=== PATIENT | female | born 1965 | race Caucasian/White ===

== ENCOUNTER 2017-10-29 08:08 | Emergency (ER) | payer OTHER ==
[2017-10-29 08:11] VITALS: BMI 29.2
[2017-10-29 08:12] VITALS: O2SAT 100
[2017-10-29] MEDS ORDERED: Sodium Chloride 0.9% 1,000 ML IV STA (08:32)
--- NOTE | 2017-10-29 09:52 | RAD ---
Date of service: 10/29/2017 PROCEDURE: Left Knee Radiographs. HISTORY: Pain. COMPARISON: None. FINDINGS: BONES: No acute fracture or destructive bony lesion identified. JOINTS: Medial femorotibial joint space narrowing is appreciated as well as of the patellofemoral compartment with limited cortical sclerosis compatible with degenerative joint disease. Small osteophytes seen the lateral pharyngeal femorotibial and patellofemoral compartments compatible with the same. No subluxation or dislocation identified. JOINT EFFUSION: None. OTHER FINDINGS: None. IMPRESSION: Mild degenerative joint disease, tricompartmental. No acute fracture, subluxation or dislocation.
--- NOTE | 2017-10-29 09:57 | ED PDOC ---
Lower Extremity Pain/Injury Time Seen by Provider: 10/29/17 08:27 Chief Complaint (Nursing): Lower Extremity Problem/Injury Chief Complaint (Provider): left knee pain History Per: Patient History/Exam Limitations: no limitations Onset/Duration Of Symptoms: Hrs (today) Current Symptoms Are (Timing): Still Present Additional Complaint(s): Maria Elena Drummond is a 51 year old female, with a past medical history of arthritis to left knee for which she takes daily medications, who was brought to the emergency department via EMS stating today she was walking to work and felt a sudden pain and popping sensation to left knee. Patient states it limited her ability to ambulate afterwards. She denies any falls or trauma. Patient has not seen orthopedics for her issue yet. PMD: Dr. Thompson, who has been working with her. Past Medical History Reviewed: Historical Data, Nursing Documentation, Vital Signs Vital Signs: Last Vital Signs Temp 98.3 F 10/29/17 08:11 Pulse 66 10/29/17 08:11 Resp 20 10/29/17 08:11 BP 154/79 H 10/29/17 08:11 Pulse Ox 100 10/29/17 08:11 - Medical History PMH: Arthritis (left knee) - Surgical History Surgical History: No Surg Hx - Family History Family History: States: Unknown Family Hx - Social History Current smoker - smoking cessation education provided: No Alcohol: None Drugs: Denies - Home Medications Home Medications: Ambulatory Orders Medication Instructions Recorded Cyclobenzaprine HCl [Flexeril] 10 mg PO TID PRN #15 tab 02/18/14 Ibuprofen 600 mg PO TID PRN #15 tab 02/18/14 traMADol [Ultram] 50 mg PO TID PRN #12 tab 10/29/17 - Allergies Allergies/Adverse Reactions: Allergies Allergy/AdvReac Type Severity Reaction Status Date / Time No Known Allergies Allergy Unverified 02/18/14 11:16 Review of Systems ROS Statement: Except As Marked, All Systems Reviewed And Found Negative Musculoskeletal: Positive for: Leg Pain (left knee) Physical Exam - Reviewed Nursing Documentation Reviewed: Yes Vital Signs Reviewed: Yes - Physical Exam Appears: Positive for: No Acute Distress Head Exam: Positive for: ATRAUMATIC, NORMAL INSPECTION, NORMOCEPHALIC Skin: Positive for: Normal Color, Warm, Dry Eye Exam: Positive for: Normal appearance, EOMI, PERRL Neck: Positive for: Painless ROM Extremity: Positive for: Normal ROM (Hip and ankle full ROM), Swelling (minimal edema to left knee. No erythema), Other (pain with ROM of left knee. Full passive ROM, patella is in normal position). Negative for: Deformity (left knee , no crepitus) Neurologic/Psych: Positive for: Alert, Oriented - ECG O2 Sat by Pulse Oximetry: 100 (RA) Pulse Ox Interpretation: Normal Medical Decision Making Medical Decision Making: Time: 08:29 Initial Impression: internal derangement of knee Initial Plan: --Knee 3 views LT [RAD] --Tylenol 325 mg tab 650 mg PO --Reevaluation Accession No. : [id number] Patient Name / ID : ELEAZAR MOSELEY / [id number] Exam Date : 10/29/2017 09:17:16 ( Approved ) Study Comment : Sex / Age : F / 51Y Creator : jennifer padron Dictator : Taran Little MD Business Development Intern : Extractive Metallurgist : Taran Little MD Approver2 : Report Date : 10/29/2017 09:36:39 My Comment : Date of service: 10/29/2017 PROCEDURE: Left Knee Radiographs. HISTORY: Pain. COMPARISON: None. FINDINGS: BONES: No acute fracture or destructive bony lesion identified. JOINTS: Medial femorotibial joint space narrowing is appreciated as well as of the patellofemoral compartment with limited cortical sclerosis compatible with degenerative joint disease. Small osteophytes seen the lateral pharyngeal femorotibial and patellofemoral compartments compatible with the same. No subluxation or dislocation identified. JOINT EFFUSION: None. OTHER FINDINGS: None. IMPRESSION: Mild degenerative joint disease, tricompartmental. No acute fracture, subluxation or dislocation. 10:00 -Patient placed on knee immobilizer and advised to follow up with PMD and orthopedist for MRI. Patient is severely claustrophobic and requires open MRI as an outpatient. Discussed w Dr Lopez covering Dr Thompson, requests vocational placement specialist ortho referral and will see in office next weelk crutch training provided, toe touching. 11:00 -Patient ambulating. Provided Keflex for UTI pending culture and discharge caution with flight and alcohol intake. ----- Scribe Attestation: Documented by Elijah Valentin, acting as a scribe for Conrado Rosario MD. Provider Scribe Attestation: All medical record entries made by the Scribe were at my direction and personally dictated by me. I have reviewed the chart and agree that the record accurately reflects my personal performance of the history, physical exam, medical decision making, and the department course for this patient. I have also personally directed, reviewed, and agree with the discharge instructions and disposition. Disposition - Clinical Impression Clinical Impression: Internal derangement of knee - Disposition Referrals: Estuardo Enriquez MD [Medical Doctor] - Disposition: Routine/Home Disposition Time: 11:00 Condition: STABLE Additional Instructions: Wear immobilizer, use crutches, see orthopedics or your PMD for further testing and possible open MRI. Prescriptions: traMADol [Ultram] 50 mg PO TID PRN #12 tab PRN Reason: Pain, Moderate (4-7) Instructions: Internal Derangement of the Knee Forms: [employer] (Montenegrin)
[2017-10-29 11:37] VITALS: PULSE 78; RESP 19; TEMP 97
[2017-10-29 11:39] VITALS: BP 136/75
== END 2017-10-29 11:39 | disposition home or self-care (01) ==
LOC: H.ER 08:08
DX: M23.92 Unspecified internal derangement of left knee (principal)
CPT/HCPCS: 29530; 73562; 99283; L1830